=== PATIENT | female | born 1980 | race Caucasian/White ===

== ENCOUNTER 2017-08-21 20:00 | Emergency (ER) | payer OTHER ==
[2017-08-21 21:57] LABS: BILIRUBIN NEGATIVE (NEGATIVE); BLOOD NEGATIVE Ery/uL (NEGATIVE); CLARITY CLEAR (CLEAR); COLOR YELLOW (YELLOW); GLUCOSE (U) NORMAL (NORMAL); KETONE (U) TRACE mg/dL (NEGATIVE); LEUKOCYTES NEGATIVE Leu/uL (NEGATIVE); NITRITE NEGATIVE (NEGATIVE); PROTEIN NEGATIVE (NEGATIVE); UROBILINOGEN 0.2 mg/dL (0.2-1.0)
== END 2017-08-21 23:40 | disposition home or self-care (01) ==
LOC: FER 20:00
PROVIDERS: Nurse Practitioner Family
DX: M25.562 Pain in left knee (principal); R26.2 Difficulty in walking, not elsewhere classified; I25.2 Old myocardial infarction; E78.5 Hyperlipidemia, unspecified; Z79.899 Other long term (current) drug therapy; Z98.61 Coronary angioplasty status
CPT/HCPCS: 73564; 81003; 99283; J1100; J1885

== ENCOUNTER 2021-03-13 13:53 | Emergency (ER) | payer OTHER ==
[~2021-03-13 13:53] MED LIST: ATORVASTATIN CA40 MG PO; AUGMENTIN 875-1 EACH PO; BACLOFEN 10MG T10 MG PO; BUMETANIDE2 MG PO; BUSPAR5 MG PO; CETIRIZINE HCL10 MG PO; COREG 6.25MG6.25 MG PO; COZAAR 25MG TAB25 MG PO; COZAAR100 MG PO; GEODON40 MG PO; GEODON60 MG PO; HYDRALAZINE25 MG PO; HYDROCODON-ACE1 EAC4 PO; IBU800 MG PO; K-DUR20 MEQ PO; KETOROLAC TROME10 MG PO; LIPITOR20 MG PO; MEDROL 4MG DOSEP4 MG PO; NAPROXEN500 MG PO; NORCO 5-325 TA1 EACH PO; OSTERA TABLET1 EACH PO; OXCARBAZEPINE300 MG PO; RISPERDAL 1MG TA1 MG PO; SINGULAIR10 MG PO; TRILEPTAL150 MG PO; TRILEPTAL600 MG PO; VENTOLIN HFA IN18 GM INH; WELLBUTRIN SR150 MG PO; WELLBUTRIN XL300 MG PO
[2021-03-13] MEDS ORDERED: MEDROL 4MG DOSEP4 MG PO (17:22)
[2021-03-13] MEDS ORDERED: NORCO 5-325 TA1 EACH PO (17:22)
== END 2021-03-13 17:45 | disposition home or self-care (01) ==
LOC: FER 13:53
DX: S86.211A Strain of muscle(s) and tendon(s) of anterior muscle group at lower leg level, right leg, initial encounter (principal); J45.909 Unspecified asthma, uncomplicated; I48.91 Unspecified atrial fibrillation; X50.1XXA Overexertion from prolonged static or awkward postures, initial encounter; Y92.89 Other specified places as the place of occurrence of the external cause; Y99.0 Civilian activity done for income or pay
CPT/HCPCS: 73564; 96372; J1885

== ENCOUNTER 2021-04-21 10:21 | Day surgery (SDCO) | payer OTHER ==
[2021-04-21 10:55] LABS: BASOPHIL 0.5 % (0-2); EOSINOPHIL 3.3 % (0-5); HCT 36.1 % (37.0-47.0); HGB 11.7 g/dl (12.5-16.0); LYMPHOCYTE 17.9 % (15-48); MCH 27.7 pg (25.0-31.0); MCHC 32.4 g/dL (32.0-36.0); MCV 85.5 fL (78.0-100.0); MONOCYTE 5.5 % (0-12); MPV 9.5 fL (6.0-9.5); NEUTROPHIL 72.5 % (41-80); NRBC 0; PLT 320 K/uL (150-400); RBC 4.22 M/uL (4.20-5.40); RDW 15.7 % (11.5-14.0); WBC 7.6 K/uL (4.0-10.5)
[2021-04-21 11:08] LABS: INR 1.04 (0.9-1.2); PROTHROMBIN TIME 12.9 SECONDS (11.4-13.6); PTT 29.4 SECONDS (22.2-34.7)
[2021-04-21 11:14] LABS: ALBUMIN 3.4 g/dL (3.4-5.0); BILIRUBIN - TOTAL 0.4 mg/dL (0.2-1.0); BUN/CREAT RATIO (CALC) 13.7 RATIO; CREATININE 1.02 mg/dL (0.51-0.95); GLOBULIN (CALCULATION) 4.4 g/dL; POTASSIUM 3.4 mmol/L (3.5-5.1); TOTAL PROTEIN 7.8 g/dL (6.4-8.2)
[2021-04-21 11:26] LABS: PRO-BNP 35 pg/mL (<125)
[2021-04-21] MEDS ORDERED: VITAMIN D3 COM1 EACH PO (14:34)
[2021-04-21] MEDS ORDERED: CLARITIN10 MG PO (14:35)
[2021-04-21] MEDS ORDERED: BUMETANIDE1 MG PO (14:39)
[2021-04-21] MEDS ORDERED: ASPIRIN EC81 MG PO (14:43)
[2021-04-21] MEDS ORDERED: PYRIDIUM100 MG PO (14:44)
[2021-04-21] MEDS ORDERED: VENTOLIN HFA IN18 GM INH (14:48)
[2021-04-21 17:08] LABS: BUN/CREAT RATIO (CALC) 13.8 RATIO; CREATININE 0.87 mg/dL (0.51-0.95); POTASSIUM 3.3 mmol/L (3.5-5.1)
[2021-04-21 21:35] LABS: BILIRUBIN NEGATIVE (NEGATIVE); BLOOD NEGATIVE Ery/uL (NEGATIVE); CLARITY CLOUDY (CLEAR); COLOR YELLOW (YELLOW); GLUCOSE (U) NORMAL (NORMAL); LEUKOCYTES NEGATIVE Leu/uL (NEGATIVE); NITRITE NEGATIVE (NEGATIVE); PROTEIN NEGATIVE (NEGATIVE); SPECIFIC GRAVITY 1.025 (1.001-1.030); UROBILINOGEN 0.2 mg/dL (0.2-1.0); pH 5.5 (5.0-9.0)
[2021-04-22 04:12] LABS: BASOPHIL 0.4 % (0-2); EOSINOPHIL 1.7 % (0-5); HCT 32.8 % (37.0-47.0); HGB 10.7 g/dl (12.5-16.0); LYMPHOCYTE 16.3 % (15-48); MCH 28.2 pg (25.0-31.0); MCHC 32.6 g/dL (32.0-36.0); MCV 86.3 fL (78.0-100.0); MPV 9.8 fL (6.0-9.5); NEUTROPHIL 76.4 % (41-80); NRBC 0; PLT 270 K/uL (150-400); RDW 15.6 % (11.5-14.0); WBC 8.1 K/uL (4.0-10.5)
[2021-04-22 04:28] LABS: BUN/CREAT RATIO (CALC) 13.5 RATIO; CREATININE 1.04 mg/dL (0.51-0.95); POTASSIUM 3.8 mmol/L (3.5-5.1)
[2021-04-22 04:39] LABS: PRO-BNP 54 pg/mL (<125)
[2021-04-22] MEDS ORDERED: NITROQUIK SL0.4 MG SL (11:41)
== END 2021-04-22 12:38 | disposition home or self-care (01) ==
LOC: FER 10:21 → FTCU 13:03
PROVIDERS: Emergency Medicine; ADMIT Internal Medicine
DX: R07.9 Chest pain, unspecified (principal); I25.10 Atherosclerotic heart disease of native coronary artery without angina pectoris; I25.2 Old myocardial infarction; I10 Essential (primary) hypertension; E78.5 Hyperlipidemia, unspecified; G47.33 Obstructive sleep apnea (adult) (pediatric); Z88.8 Allergy status to other drugs, medicaments and biological substances; Z95.0 Presence of cardiac pacemaker; Z79.82 Long term (current) use of aspirin; Z82.49 Family history of ischemic heart disease and other diseases of the circulatory system; Z20.822 Contact with and (suspected) exposure to COVID-19
CPT/HCPCS: 36415; 71045; 80048; 80053; 81003; 82553; 83735; 83880; 84484; 85025; 85610; 85730; 87040; 93005; 94010; G0378; J1170; J1650; J1885; J2405; J2550; J7040; U0002

== ENCOUNTER 2021-05-31 20:59 | Emergency (ER) | payer OTHER ==
[~2021-05-31 20:59] MED LIST changes: +ASPIRIN EC81 MG PO; +BUMETANIDE1 MG PO; +CLARITIN10 MG PO; +NITROQUIK SL0.4 MG SL; +PYRIDIUM100 MG PO; +VITAMIN D3 COM1 EACH PO
[2021-05-31 21:35] LABS: BASOPHIL 0.3 % (0-2); EOSINOPHIL 1.9 % (0-5); HCT 37.7 % (37.0-47.0); HGB 12.5 g/dl (12.5-16.0); LYMPHOCYTE 20.9 % (15-48); MCH 28.7 pg (25.0-31.0); MCHC 33.2 g/dL (32.0-36.0); MCV 86.7 fL (78.0-100.0); MONOCYTE 4.8 % (0-12); MPV 9.7 fL (6.0-9.5); NEUTROPHIL 71.8 % (41-80); NRBC 0; PLT 311 K/uL (150-400); RBC 4.35 M/uL (4.20-5.40); RDW 14.9 % (11.5-14.0); WBC 9.1 K/uL (4.0-10.5)
[2021-05-31 21:46] LABS: ALBUMIN 3.6 g/dL (3.4-5.0); BILIRUBIN - TOTAL 0.2 mg/dL (0.2-1.0); BUN/CREAT RATIO (CALC) 11.4 RATIO; CREATININE 0.88 mg/dL (0.51-0.95); GLOBULIN (CALCULATION) 4.7 g/dL; POTASSIUM 3.5 mmol/L (3.5-5.1); TOTAL PROTEIN 8.3 g/dL (6.4-8.2)
== END 2021-06-01 00:18 | disposition home or self-care (01) ==
LOC: FER 20:59
PROVIDERS: Emergency Medicine
DX: R20.2 Paresthesia of skin (principal); I10 Essential (primary) hypertension; E78.5 Hyperlipidemia, unspecified; Z88.8 Allergy status to other drugs, medicaments and biological substances; Z79.899 Other long term (current) drug therapy
CPT/HCPCS: 36415; 70450; 80053; 85025; J2405

== ENCOUNTER 2021-11-11 21:32 | Emergency (ER) | payer OTHER ==
[2021-11-11 23:26] LABS: BASOPHIL 0.6 % (0-2); EOSINOPHIL 3.3 % (0-5); HCT 34.8 % (37.0-47.0); HGB 11.1 g/dl (12.5-16.0); LYMPHOCYTE 28.5 % (15-48); MCH 28.2 pg (25.0-31.0); MCHC 31.9 g/dL (32.0-36.0); MCV 88.5 fL (78.0-100.0); MONOCYTE 6.1 % (0-12); MPV 10.1 fL (6.0-9.5); NEUTROPHIL 61.2 % (41-80); NRBC 0; PLT 262 K/uL (150-400); RBC 3.93 M/uL (4.20-5.40); RDW 15.1 % (11.5-14.0); WBC 6.7 K/uL (4.0-10.5)
[2021-11-11 23:50] LABS: ALBUMIN 3.3 g/dL (3.4-5.0); BILIRUBIN - TOTAL 0.1 mg/dL (0.2-1.0); BUN/CREAT RATIO (CALC) 12.5 RATIO; CREATININE 0.88 mg/dL (0.51-0.95); GLOBULIN (CALCULATION) 3.7 g/dL; POTASSIUM 3.9 mmol/L (3.5-5.1)
[2021-11-12] LABS: BILIRUBIN NEGATIVE (NEGATIVE); BLOOD 3+ Ery/uL (NEGATIVE); COLOR YELLOW (YELLOW); GLUCOSE (U) NORMAL (NORMAL); LEUKOCYTES NEGATIVE Leu/uL (NEGATIVE); NITRITE NEGATIVE (NEGATIVE); PROTEIN NEGATIVE (NEGATIVE); SPECIFIC GRAVITY >=1.030 (1.001-1.030); UROBILINOGEN 0.2 mg/dL (0.2-1.0)
[2021-11-12 00:02] LABS: CLARITY HAZY (CLEAR)
[2021-11-12 00:07] LABS: BACTERIA 1+
[2021-11-12] MEDS ORDERED: IBUPROFEN800 MG PO (01:30)
[2021-11-12] MEDS ORDERED: NORCO 5-325 TA1 EACH PO (01:30)
[2021-11-12] MEDS ORDERED: ROBAXIN750 MG PO (01:30)
[2021-11-12] MEDS ORDERED: MEDROL 4MG DOSEP4 MG PO (01:31)
[2021-11-12] MEDS ORDERED: PERCOCET 5-3251 EACH PO (01:32)
== END 2021-11-12 01:54 | disposition home or self-care (01) ==
LOC: FER 21:32
PROVIDERS: Emergency Medicine Emergency Medical Services
DX: N83.201 Unspecified ovarian cyst, right side (principal); I50.9 Heart failure, unspecified; Z88.8 Allergy status to other drugs, medicaments and biological substances
CPT/HCPCS: 36415; 80053; 81001; 84484; 85025; 85379; J1100; J1170; J1885; J2405; J2800; J7050

== ENCOUNTER 2021-11-27 08:40 | Emergency (ER) | payer OTHER ==
[~2021-11-27 08:40] MED LIST changes: +IBUPROFEN800 MG PO; +PERCOCET 5-3251 EACH PO; +ROBAXIN750 MG PO
[2021-11-27 09:20] LABS: BASOPHIL 0.4 % (0-2); HCT 37.6 % (37.0-47.0); LYMPHOCYTE 16.9 % (15-48); MCH 27.8 pg (25.0-31.0); MCHC 31.9 g/dL (32.0-36.0); MCV 87.2 fL (78.0-100.0); NEUTROPHIL 73.4 % (41-80); NRBC 0; PLT 289 K/uL (150-400); RBC 4.31 M/uL (4.20-5.40); RDW 14.7 % (11.5-14.0); WBC 7.3 K/uL (4.0-10.5)
[2021-11-27 09:41] LABS: BUN/CREAT RATIO (CALC) 10.3 RATIO; CREATININE 1.16 mg/dL (0.51-0.95); POTASSIUM 3.2 mmol/L (3.5-5.1)
== END 2021-11-27 11:59 | disposition home or self-care (01) ==
LOC: FER 08:40
PROVIDERS: Internal Medicine
DX: E86.0 Dehydration (principal); E87.6 Hypokalemia; I10 Essential (primary) hypertension; I48.91 Unspecified atrial fibrillation; Z88.8 Allergy status to other drugs, medicaments and biological substances
CPT/HCPCS: 36415; 80048; 83880; 84484; 85025; 93005; J7040

== ENCOUNTER 2022-05-23 13:10 | Emergency (ER) | payer OTHER ==
[2022-05-23 14:03] LABS: BASOPHIL 0.3 % (0-2); EOSINOPHIL 2.8 % (0-5); HCT 34.3 % (37.0-47.0); HGB 11.2 g/dl (12.5-16.0); LYMPHOCYTE 48.1 % (15-48); MCH 28.3 pg (25.0-31.0); MCHC 32.7 g/dL (32.0-36.0); MCV 86.6 fL (78.0-100.0); MONOCYTE 6.5 % (0-12); MPV 10.1 fL (6.0-9.5); NEUTROPHIL 42.3 % (41-80); NRBC 0; PLT 191 K/uL (150-400); RBC 3.96 M/uL (4.20-5.40); RDW 14.6 % (11.5-14.0); WBC 3.2 K/uL (4.0-10.5)
[2022-05-23 14:07] LABS: INR 1.04 (0.9-1.2); PTT 26.9 SECONDS (24.4-34.7)
[2022-05-23 14:13] LABS: ALBUMIN 3.4 g/dL (3.4-5.0); BILIRUBIN - TOTAL 0.3 mg/dL (0.2-1.0); BUN/CREAT RATIO (CALC) 10.1 RATIO; CREATININE 0.69 mg/dL (0.51-0.95); GLOBULIN (CALCULATION) 3.1 g/dL; POTASSIUM 3.7 mmol/L (3.5-5.1); TOTAL PROTEIN 6.5 g/dL (6.4-8.2)
[2022-05-23 15:28] LABS: BILIRUBIN NEGATIVE (NEGATIVE); BLOOD 3+ Ery/uL (NEGATIVE); CLARITY CLOUDY (CLEAR); COLOR YELLOW (YELLOW); GLUCOSE (U) NORMAL (NORMAL); LEUKOCYTES NEGATIVE Leu/uL (NEGATIVE); NITRITE NEGATIVE (NEGATIVE); PROTEIN TRACE (LOW) mg/dL (NEGATIVE); UROBILINOGEN 0.2 mg/dL (0.2-1.0)
[2022-05-23 15:53] LABS: URINARY RBC TNTC
[2022-05-23 15:54] LABS: BACTERIA 2+; URINARY WBC RARE
== END 2022-05-23 17:23 | disposition home or self-care (01) ==
LOC: FER 13:10
PROVIDERS: Physician Assistant
DX: R42 Dizziness and giddiness (principal); Z87.891 Personal history of nicotine dependence; Z88.8 Allergy status to other drugs, medicaments and biological substances; Z91.048 Other nonmedicinal substance allergy status
CPT/HCPCS: 36415; 70450; 80053; 81001; 83690; 84145; 85025; 85610; 85730; J7030